=== PATIENT | male | born 1985 | race African-American/Black ===

== ENCOUNTER 2021-03-23 09:28 | Emergency (ER) | payer SELFPAY ==
[~2021-03-23] VITALS: Ht 182.9 cm; Wt 68.0 kg
--- NOTE | 2021-03-23 09:28 | NUR ---
PT BIBRA 86 C/O OD OF UNKNOWN DRUGS "I INJECT SOME DRUGS I THOUGHT IT WAS FENTANYL" PT IS AAOX4, NOT IN RESPIRATORY DISTRESS, HOOKED TO BUN ICER, KEPT RESTED AND COMFORTABLE. WILL CONTINUE TO MONITOR.
--- NOTE | 2021-03-23 09:33 | NUR ---
AT BEDSIDE FOR EVAL.
[2021-03-23] MEDS ORDERED: diphenhydrAMINE HCL 50 MG CAPSULE ONE (09:40)
[2021-03-23] MEDS ORDERED: FAMOTIDINE (20 MG) 20 MG TABLET ONE (09:40)
[2021-03-23] MEDS ORDERED: predniSONE 20 MG TABLET ONE (09:41)
[2021-03-23] MEDS ORDERED: predniSONE 10 MG TABLET ONE (09:41)
[2021-03-23] MEDS ORDERED: FAMOTIDINE (20 MG) 20 MG TABLET PO ONE (10:00)
[2021-03-23] MEDS ORDERED: predniSONE 50 MG TABLET PO ONE (10:00)
[2021-03-23] MEDS ORDERED: diphenhydrAMINE HCL 50 MG CAPSULE PO ONE (10:00)
[2021-03-23] MEDS ORDERED: LORAZEPAM 1 MG TABLET PO ONE (12:00)
[2021-03-23] MEDS ORDERED: LORAZEPAM 1 MG TABLET ONE (12:13)
[2021-03-23] MEDS ORDERED: NALO4SPR NS (13:28)
--- NOTE | 2021-03-23 13:45 | NUR ---
PT VITALS REMAINS TO BE STABLE. MEDICALLY CLEARED BY ERMD FOR DISCHARGED. PT SIGNED HOMELESS WAIVER. STABLE CONDITION.
[2021-03-23 13:46] VITALS: BP 122/60
== END 2021-03-23 13:49 | disposition home or self-care (01) ==
LOC: ER 12:36
DX: F19.10 Other psychoactive substance abuse, uncomplicated (principal); R94.31 Abnormal electrocardiogram [ECG] [EKG]; F17.200 Nicotine dependence, unspecified, uncomplicated; Z59.0 Homelessness
CPT/HCPCS: 93005; 99284; J7512 ×2; Q0163